=== PATIENT | female | born 2000 | race African-American/Black ===

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

== ENCOUNTER 2020-06-30 11:24 | Emergency (ER) | payer BC ==
[~2020-06-30] VITALS: Ht 160 cm; Wt 50.0 kg
[~2020-06-30 11:24] MED LIST changes: +ALBUTEROL SULF8.5 GM INH; +AUGMENTIN 875-11 TAB PO; +MEDROL DOSE PACK4 MG PO; +VIBRAMYCIN 100100 MG PO
[2020-06-30 11:34] VITALS: Ht 160 cm; Wt 50.0 kg
[2020-06-30 12:04] LABS: BASOPHILS 0.1 % (0-2); EOSINOPHILS 0.3 % (0-7); HEMATOCRIT 41.1 % (36.0-48.0); HEMOGLOBIN 13.9 g/dL (12-16); IMMATURE GRANULOCYTES 0.3 % (0-5); LYMPHOCYTE ABS# 2.53 10x3/uL (1.18-3.74); LYMPHOCYTES 32.9 % (15-50); MCH 32.6 pg (26.0-34.0); MCHC 33.8 g/dL (31.0-37.0); MCV 96.3 fL (80.0-100.0); MONOCYTES 7.5 % (2-11); NEUTROPHIL ABS# 4.54 10x3/uL (1.56-6.13); NEUTROPHILS 58.9 % (40-80); PLATELET COUNT 250 10x3/uL (130-400); RBC 4.27 10x6/uL (4.00-5.40); RDW 12.5 % (11.5-14.5); WBC 7.7 10x3/uL (4.8-10.8)
[2020-06-30 12:16] LABS: CALC OSMOLALITY 270 mosm/kg (275-300); CALCIUM 8.6 mg/dL (8.5-10.1); CARBON DIOXIDE 25.9 mmol/L (21.0-32.0); CHLORIDE - SERUM 103 mmol/L (98-107); CREATININE - SERUM 0.8 mg/dL (0.6-1.3); GLUCOSE 85 mg/dL (74-106); POTASSIUM - SERUM 4.3 mmol/L (3.5-5.1); SODIUM 137 mmol/L (136-145); UREA NITROGEN 8 mg/dL (7-18); eGFR NON AFRICAN AMERICAN > 90 mL/min (90-120)
[2020-06-30 12:21] LABS: ALBUMIN 4.1 g/dL (3.4-5.0); ALKALINE PHOSPHATASE 63 U/L (30-120); ALT (SGPT) 13 U/L (10-68); BILIRUBIN - TOTAL 0.23 mg/dL (0.2-1.3); PROTEIN - SERUM 7.4 g/dL (6.4-8.2)
[2020-06-30 12:23] LABS: HCG SERUM NEGATIVE (NEGATIVE)
[2020-06-30] MEDS ORDERED: CHLORASEPTIC177 ML TOPICAL (14:09)
[2020-06-30 14:14] VITALS: BP 128/72
== END 2020-06-30 14:15 | disposition home or self-care (01) ==
LOC: D.ER 11:24
PROVIDERS: Family Medicine
DX: S10.11XA Abrasion of throat, initial encounter (principal); F45.8 Other somatoform disorders; X58.XXXA Exposure to other specified factors, initial encounter

== ENCOUNTER 2020-09-09 14:13 | Emergency (ER) | payer MEDICAID ==
[~2020-09-09] VITALS: Ht 157.5 cm; Wt 50.0 kg
[~2020-09-09 14:13] MED LIST changes: +CHLORASEPTIC177 ML TOPICAL
[2020-09-09 14:26] VITALS: BP 137/94; Ht 157.5 cm; Wt 50.0 kg
== END 2020-09-09 16:26 | disposition home or self-care (01) ==
LOC: D.ER 14:13
DX: J02.0 Streptococcal pharyngitis (principal); Z72.0 Tobacco use